=== PATIENT | male | born 1970 | race Two or more races ===

== ENCOUNTER 2021-06-13 11:57 | Emergency (ER) | payer OTHER ==
[~2021-06-13] VITALS: Ht 180.3 cm; Wt 102.5 kg
== END 2021-06-13 17:41 | disposition home or self-care (01) ==
LOC: ER 11:57
DX: B34.9 Viral infection, unspecified (principal); R05.9 Cough, unspecified; R53.81 Other malaise

== ENCOUNTER 2021-06-15 15:00 | Outpatient (CLI) | payer OTHER | END 2021-06-15 16:17 | disposition home or self-care (01) | LOC: ASH CLINIC 15:00 | PROVIDERS: ATTEND General Practice | DX: Z23 Encounter for immunization (principal); U07.1 COVID-19 ==